=== PATIENT | male | born 1985 ===

== ENCOUNTER 2020-01-28 17:20 | Emergency (ER) | payer SELFPAY ==
[2020-01-28] MEDS ORDERED: ALPRAZolam 0.25 MG TAB ONE (20:38)
[2020-01-28] MEDS ORDERED: ALPRAZolam 0.25 MG TAB As Ordered ONE (20:38)
--- NOTE | 2020-02-25 13:43 | ECGEPIP ---
[facility] - ED Test Date: 2020-01-28 Pat Name: ANGELA OSORIO Department: Room: - Gender: Male Rn Chronic: ROSIO : 1985 Requested By: MAY Laureano Order Number: [id number] Reading MD: Tatyana Dalal Measurements Intervals Dobson Rate: 93 P: 59 NV: 171 QRS: -2 QRSD: 106 T: 32 QT: 320 QTc: 398 Interpretive Statements SINUS RHYTHM NORMAL ECG SEE SCANNED DOWNTIME REPORT
[2020-03-13 12:31] LABS: BASO # 0.1 10^3/uL (0.0-0.2); BASO % 0.7 % (0.0-1.0); EOS # 0.1 10^3/uL (0.0-0.5); EOS % 0.7 % (0.0-3.0); HEMATOCRIT 46.2 % (42.0-52.0); HEMOGLOBIN 15.7 g/dl (13.5-17.5); LYMPH # 1.1 10^3/uL (1.5-5.0); LYMPH % 11.4 % (24.0-44.0); MEAN CORPUSCULAR VOLUME 85.4 fl (80.0-96.0); MONO # 0.6 10^3/uL (0.0-0.8); MONO % 5.9 % (0.0-5.0); NEUTROPHILS # 7.8 10^3/uL (1.5-8.5); NEUTROPHILS % 80.9 % (36.0-66.0); PLATELET COUNT, AUTOMATED 187 10^3/uL (150-450); RED BLOOD COUNT 5.41 10^6/uL (4.30-6.10); WHITE BLOOD COUNT 9.6 10^3/uL (4.0-10.0)
[2020-03-13 13:35] LABS: D-DIMER QUANT < 270 ng/ml (<500); INR 0.83; PARTIAL THROMBOPLASTIN TIME 23.7 SECONDS (24.2-38.5); PROTHROMBIN TIME 11.6 SECONDS (12.5-14.3)
== END 2020-01-28 20:45 | disposition home or self-care (01) ==
LOC: M ED 17:20
DX: R07.89 Other chest pain (principal); R42 Dizziness and giddiness; R53.1 Weakness; I10 Essential (primary) hypertension; Z79.899 Other long term (current) drug therapy